=== PATIENT | female | born 1935 | race Caucasian/White ===

== ENCOUNTER 2017-05-20 18:19 | Inpatient (IN) | payer MEDICARE ==
[~2017-05-20] VITALS: Ht 165.1 cm; Wt 94.4 kg
[~2017-05-20 18:19] MED LIST: AMLO5TAB2 PO; AMOX1TAB61 PO; APIX5TAB PO; ATOR40TA PO; CITA20TA5 PO; ENAL20TA PO; ERGO500017 PO; ESOM20CA PO; ESOM40CA PO; FLUD0.1T PO; LEVO250T23 PO; LEVO500T47 PO; LISI-170 PO; MECL12.5 PO; METO25TA35 PO; OMEP-110 PO; RIVA15TA PO; RIVA20TA PO; SIMV80TA3 PO; WARF-36 PO
[2017-05-20] MEDS ORDERED: ATOR40TA PO (18:31)
[2017-05-20] MEDS ORDERED: APAP/CODEINE 300/30MG TABLET PO PRN (19:00)
[2017-05-20 20:31] LABS: BASOPHILS # (AUTO) 0.02 x10^3/uL (0-0.1); BASOPHILS % (AUTO) 0 % (0-1); EOSINOPHILS # (AUTO) 0.02 x10^3/uL (0-0.4); EOSINOPHILS % (AUTO) 0 % (1-7); LYMPHOCYTES # (AUTO) 1.37 x10^3/uL (1-3.4); LYMPHOCYTES % (AUTO) 12 % (22-44); MD NO; MEAN CORPUSCULAR HEMOGLOBIN 24.5 pg (27.0-34.8); MEAN CORPUSCULAR HGB CONC 32.2 g/dL (32.4-35.8); MEAN CORPUSCULAR VOLUME 76.1 fL (80-100); MONOCYTES # (AUTO) 1.14 x10^3/uL (0.2-0.8); MONOCYTES % (AUTO) 10 % (2-9); NEUTROPHILS # (AUTO) 8.79 x10^3/uL (1.8-6.8); NEUTROPHILS % (AUTO) 78 % (42-75); PLATELET COUNT 158 x10^3/uL (130-400); RED BLOOD COUNT 4.18 x10^6/uL (3.82-5.3); RED CELL DISTRIBUTION WIDTH 19.8 % (9.6-15.2)
[2017-05-20 20:33] LABS: HCT (SEDRATE) 31.8 % (34.6-47.8)
[2017-05-20 20:42] LABS: ANION GAP 9 mmol/L (5-15); CALCIUM 8.9 mg/dL (8.5-10.1); CHLORIDE 107 mmol/L (98-107); CREATININE 0.98 mg/dL (0.55-1.02)
[2017-05-20 20:55] LABS: C-REACTIVE PROTEIN, QUANT > 19.00 mg/dL (0.02-0.49)
[2017-05-20] MEDS ORDERED: LIDOCAINE-MPF 1%, 5ML ONE (22:16)
[2017-05-20] MEDS ORDERED: LIDOCAINE 1%, 10ML INFIL ONE (22:30)
[2017-05-20] MEDS ORDERED: CEFEPIME 2 GM in SODIUM CHLORIDE 0.9% 100 ML IV ONE (23:30)
[2017-05-20] MEDS ORDERED: VANCOMYCIN PER PHARMACY MC ONE (23:30)
[2017-05-20] MEDS ORDERED: CEFEPIME 2 GM in DEXTROSE 5% 100 ML IV ONE (23:30)
[2017-05-21] MEDS ORDERED: VANCOMYCIN 1,600 MG in SODIUM CHLORIDE 0.9% 250 ML IV ONE
[2017-05-21] MEDS ORDERED: POTASSIUM CHLORIDE 20 MEQ TAB.ER.PRT PO ONE
[2017-05-21] MEDS ORDERED: ONDANSETRON 2MG/ML, 2ML IVPush PRN ×2 (00:30→16:30)
[2017-05-21] MEDS ORDERED: morphine SULFATE 10 MG/ML, 1ML IVPush PRN (00:30)
[2017-05-21] MEDS ORDERED: VANCOMYCIN PER PHARMACY MC PRN ×2 (00:30→07:30)
[2017-05-21 00:31] LABS: % IRON SATURATION 4 % (20-55); IRON LEVEL 10 mcg/dL (50-170); TOTAL IRON BINDING CAPACITY 280 mcg/dL (250-450)
[2017-05-21] MEDS: SODIUM CHLORIDE 0.9% 1,000 ML IV SCH ×2 (01:17→13:27)
[2017-05-21 01:30] VITALS: BP 162/84
[2017-05-21] MEDS ORDERED: PHARMACOKINETIC MONITORING MC PRN (01:30)
[2017-05-21] MEDS ORDERED: DIPHENHYDRAMINE 50 MG/ML, 1ML ONE (02:17)
[2017-05-21] MEDS: HYDROcodone/APAP 5/325 TABLET PO PRN ×3 (02:21→20:37)
[2017-05-21] MEDS ORDERED: DIPHENHYDRAMINE 50 MG/ML, 1ML IVPush ONE (02:30)
[2017-05-21 02:50] VITALS: BP 162/84
[2017-05-21 07:25] VITALS: BP 157/81
[2017-05-21] MEDS: METOPROLOL TARTRATE 25 MG TABLET PO SCH ×2 (08:46→20:39)
[2017-05-21] MEDS: PANTOPROZOLE 40MG TABLET PO SCH (08:47)
[2017-05-21] MEDS: LISINOPRIL 20 MG TABLET PO SCH ×2 (08:47→20:38)
[2017-05-21 10:27] LABS: INTERNATIONAL NORMALIZED RATIO 1.14 (0.93-1.1); PROTHROMBIN TIME 11.7 Seconds (9.6-11.5)
[2017-05-21] MEDS ORDERED: CEFEPIME 1 GM in DEXTROSE 5% 100 ML IV SCH (12:00)
[2017-05-21 14:14] VITALS: BP 141/76
[2017-05-21] MEDS ORDERED: TRANEXAMIC ACID 100 MG/ML, 10ML ONE (14:21)
[2017-05-21] MEDS ORDERED: VANCOMYCIN 1,000 MG ONE (14:22)
[2017-05-21] MEDS ORDERED: LIDOCAINE GEL 2%, 5ML ONE (15:11)
[2017-05-21] MEDS ORDERED: MIDAZOLAM 1 MG/ML, 2ML ONE (15:12)
[2017-05-21] MEDS ORDERED: FENTANYL PF 100 MCG/2ML ONE ×3 (15:12→17:00)
[2017-05-21] MEDS ORDERED: PROPOFOL 10 MG/ML, 20ML ONE (15:18)
[2017-05-21] MEDS ORDERED: ROCURONIUM 10 MG/ML,10ML ONE (15:18)
[2017-05-21] MEDS ORDERED: DEXAMETHASONE 4 MG/ML, 1ML ONE (15:18)
[2017-05-21] MEDS ORDERED: SUCCINYLCHOLINE 20 MG/ML, 10ML ONE (15:18)
[2017-05-21] MEDS ORDERED: ONDANSETRON 2MG/ML, 2ML ONE (15:18)
[2017-05-21] MEDS ORDERED: OXYcodone 5 MG/5 ML ORAL.SOL UDC PO PRN (16:30)
[2017-05-21] MEDS ORDERED: ACETAMINOPHEN 325 MG TABLET PO PRN (16:30)
[2017-05-21] MEDS ORDERED: PROMETHAZINE 12.5 MG SUPP PR PRN (16:30)
[2017-05-21] MEDS ORDERED: EPHEDRINE 50 MG/ML, 1ML IVPush PRN (16:30)
[2017-05-21] MEDS ORDERED: PROMETHAZINE 25 MG/ML, 1ML IV PRN (16:30)
[2017-05-21] MEDS ORDERED: morphine SULFATE 10 MG/ML, 1ML IV PRN (16:30)
[2017-05-21] MEDS ORDERED: MIDAZOLAM 1 MG/ML, 2ML IV PRN (16:30)
[2017-05-21] MEDS ORDERED: OXYcodone 5 MG/5 ML ORAL.SOL UDC ONE (17:00)
[2017-05-21] MEDS ORDERED: ACETAMINOPHEN 650 MG/20.3 ML UDC ONE (17:00)
[2017-05-21] MEDS ORDERED: ONDANSETRON ODT 4 MG PO PRN (17:00)
[2017-05-21] MEDS ORDERED: LABETALOL 5MG/ML, 20ML ONE (17:06)
[2017-05-21] MEDS: LABETALOL 5MG/ML, 20ML IV PRN ×3 (17:16→17:46)
[2017-05-21 17:17] LABS: CULTURE INDICATED? YES; MICROSCOPIC INDICATED
[2017-05-21] MEDS: FENTANYL PF 100 MCG/2ML IV PRN ×2 (17:18→17:47)
[2017-05-21] MEDS: CEFEPIME 2 GM in DEXTROSE 5% 100 ML IV SCH (18:29)
[2017-05-21 19:00] VITALS: BP 123/85
[2017-05-21] MEDS: ATORVASTATIN 40 MG TABLET PO SCH (20:38)
[2017-05-22 00:05] VITALS: BP 128/95
[2017-05-22] MEDS ORDERED: DIPHENHYDRAMINE 50 MG/ML, 1ML IVPush ONE (00:30)
[2017-05-22] MEDS ORDERED: VANCOMYCIN 1,600 MG in SODIUM CHLORIDE 0.9% 250 ML IV ONE (01:00)
[2017-05-22] MEDS: HYDROcodone/APAP 5/325 TABLET PO PRN ×4 (01:59→21:58)
[2017-05-22] MEDS: SODIUM CHLORIDE 0.9% 1,000 ML IV SCH (02:47)
[2017-05-22] MEDS: D5%-0.45% NACL 1,000 ML IV SCH ×2 (03:42→10:22)
[2017-05-22 04:00] VITALS: BP 118/54
[2017-05-22 04:25] LABS: BASOPHILS # (AUTO) 0.01 x10^3/uL (0-0.1); BASOPHILS % (AUTO) 0 % (0-1); EOSINOPHILS % (AUTO) 0 % (1-7); LYMPHOCYTES # (AUTO) 0.74 x10^3/uL (1-3.4); LYMPHOCYTES % (AUTO) 8 % (22-44); MD NO; MEAN CORPUSCULAR HEMOGLOBIN 24.4 pg (27.0-34.8); MEAN CORPUSCULAR HGB CONC 31.7 g/dL (32.4-35.8); MEAN CORPUSCULAR VOLUME 77.1 fL (80-100); MEAN PLATELET VOLUME 9.8 fL (7.4-10.4); MONOCYTES # (AUTO) 0.58 x10^3/uL (0.2-0.8); MONOCYTES % (AUTO) 6 % (2-9); NEUTROPHILS % (AUTO) 86 % (42-75); PLATELET COUNT 175 x10^3/uL (130-400); RED BLOOD COUNT 3.73 x10^6/uL (3.82-5.3); RED CELL DISTRIBUTION WIDTH 19.9 % (9.6-15.2)
[2017-05-22 04:41] LABS: ANION GAP 6 mmol/L (5-15); CALCIUM 8.2 mg/dL (8.5-10.1); CHLORIDE 110 mmol/L (98-107); CREATININE 0.76 mg/dL (0.55-1.02)
[2017-05-22] MEDS: CEFEPIME 2 GM in DEXTROSE 5% 100 ML IV SCH ×2 (06:22→18:11)
[2017-05-22 07:02] VITALS: BP 127/71
[2017-05-22] MEDS: MULTIVITAMINS/MINERALS TABLET PO SCH (08:39)
[2017-05-22] MEDS: METOPROLOL TARTRATE 25 MG TABLET PO SCH ×2 (08:39→21:59)
[2017-05-22] MEDS: PANTOPROZOLE 40MG TABLET PO SCH (08:39)
[2017-05-22] MEDS: RIVAROXABAN 10 MG TABLET PO SCH (08:39)
[2017-05-22] MEDS: LISINOPRIL 20 MG TABLET PO SCH ×2 (08:45→21:59)
[2017-05-22] MEDS ORDERED: MAGNESIUM SULFATE PMX 4GM/100M 100 ML IV ONE (09:00)
[2017-05-22] MEDS ORDERED: IRON SUCROSE COMPLEX 100MG/5ML IV ONE (09:00)
[2017-05-22 13:28] VITALS: BP 119/73
[2017-05-22] MEDS: TAMSULOSIN 0.4 MG CAP.ER.24H PO SCH (14:54)
[2017-05-22] MEDS: DAPTOMYCIN 800 MG in SODIUM CHLORIDE 0.9% 100 ML IV SCH (14:54)
[2017-05-22 15:49] LABS: THYROID STIMULATING HORMONE 0.601 mIU/L (0.358-3.740)
[2017-05-22 15:52] LABS: FOLATE LEVEL > 20.0 ng/mL (3.1-17.5)
[2017-05-22] MEDS: KETOROLAC 30 MG/1 ML IV SCH (17:16)
[2017-05-22 18:26] VITALS: BP 135/80
[2017-05-22 21:57] VITALS: BP 137/85
[2017-05-22] MEDS: ATORVASTATIN 40 MG TABLET PO SCH (21:58)
[2017-05-22] MEDS: DOCUSATE 100 MG CAPSULE PO SCH (21:58)
[2017-05-22] MEDS: POLYETHYLENE GLYCOL 17 GM PACKET PO PRN (23:39)
[2017-05-23 00:33] VITALS: BP 116/75
[2017-05-23] MEDS: KETOROLAC 30 MG/1 ML IV SCH ×2 (00:39→10:06)
[2017-05-23 05:07] LABS: BASOPHILS # (AUTO) 0.02 x10^3/uL (0-0.1); BASOPHILS % (AUTO) 0 % (0-1); EOSINOPHILS # (AUTO) 0.07 x10^3/uL (0-0.4); EOSINOPHILS % (AUTO) 1 % (1-7); LYMPHOCYTES # (AUTO) 1.42 x10^3/uL (1-3.4); LYMPHOCYTES % (AUTO) 17 % (22-44); MD NO; MEAN CORPUSCULAR HEMOGLOBIN 24.3 pg (27.0-34.8); MEAN CORPUSCULAR HGB CONC 31.6 g/dL (32.4-35.8); MEAN CORPUSCULAR VOLUME 76.7 fL (80-100); MEAN PLATELET VOLUME 9.6 fL (7.4-10.4); MONOCYTES # (AUTO) 0.81 x10^3/uL (0.2-0.8); MONOCYTES % (AUTO) 10 % (2-9); NEUTROPHILS # (AUTO) 6.09 x10^3/uL (1.8-6.8); NEUTROPHILS % (AUTO) 72 % (42-75); PLATELET COUNT 193 x10^3/uL (130-400); RED BLOOD COUNT 3.46 x10^6/uL (3.82-5.3); RED CELL DISTRIBUTION WIDTH 19.9 % (9.6-15.2)
[2017-05-23 05:15] LABS: ALBUMIN 1.9 g/dL (3.4-5.0); ANION GAP 7 mmol/L (5-15); CALCIUM 8.5 mg/dL (8.5-10.1); CHLORIDE 110 mmol/L (98-107)
[2017-05-23 05:32] LABS: CREATININE 0.78 mg/dL (0.55-1.02)
[2017-05-23] MEDS: CEFEPIME 2 GM in DEXTROSE 5% 100 ML IV SCH ×2 (06:34→18:19)
[2017-05-23 07:01] VITALS: BP 146/83
[2017-05-23] MEDS: IRON SUCROSE COMPLEX 100MG/5ML IV SCH (09:24)
[2017-05-23] MEDS: PANTOPROZOLE 40MG TABLET PO SCH ×2 (09:25→12:50)
[2017-05-23] MEDS: DOCUSATE 100 MG CAPSULE PO SCH ×3 (09:25→21:28)
[2017-05-23] MEDS: TAMSULOSIN 0.4 MG CAP.ER.24H PO SCH ×2 (09:25→12:49)
[2017-05-23] MEDS: RIVAROXABAN 10 MG TABLET PO SCH (09:25)
[2017-05-23] MEDS: MULTIVITAMINS/MINERALS TABLET PO SCH (09:25)
[2017-05-23] MEDS: METOPROLOL TARTRATE 25 MG TABLET PO SCH ×2 (09:25→21:28)
[2017-05-23] MEDS: LISINOPRIL 20 MG TABLET PO SCH ×2 (09:25→21:28)
[2017-05-23] MEDS ORDERED: HALOPERIDOL 5 MG/ML IV ONE (10:00)
[2017-05-23] MEDS ORDERED: hydrALAzine 20 MG/ML, 1ML IV PRN (10:00)
[2017-05-23] MEDS ORDERED: PROMETHAZINE 12.5 MG SUPP PR PRN (10:00)
[2017-05-23] MEDS ORDERED: FENTANYL PF 100 MCG/2ML IV PRN (10:00)
[2017-05-23] MEDS ORDERED: OXYcodone 5 MG/5 ML ORAL.SOL UDC PO PRN (10:00)
[2017-05-23] MEDS ORDERED: PROMETHAZINE 25 MG/ML, 1ML IV PRN (10:00)
[2017-05-23] MEDS ORDERED: HYDROmorphone 1 MG/ML, 1ML IV PRN (10:00)
[2017-05-23] MEDS ORDERED: ALBUTEROL SULFATE 2.5 MG/3 ML NPPB PRN (10:00)
[2017-05-23] MEDS ORDERED: ACETAMINOPHEN 325 MG TABLET PO PRN (10:00)
[2017-05-23] MEDS ORDERED: LABETALOL 5MG/ML, 20ML IV PRN (10:00)
[2017-05-23] MEDS ORDERED: ONDANSETRON 2MG/ML, 2ML ONE (10:02)
[2017-05-23] MEDS ORDERED: PROPOFOL 10 MG/ML, 20ML ONE (10:02)
[2017-05-23] MEDS ORDERED: FENTANYL PF 100 MCG/2ML ONE (10:02)
[2017-05-23] MEDS ORDERED: DEXAMETHASONE 4 MG/ML, 1ML ONE (10:02)
[2017-05-23] MEDS ORDERED: CEFAZOLIN 1,000 MG ONE (10:02)
[2017-05-23] MEDS ORDERED: ACETAMINOPHEN 650 MG/20.3 ML UDC ONE (11:50)
[2017-05-23] MEDS: ACETAMINOPHEN 325 MG TABLET PO PRN ×2 (11:51→21:42)
[2017-05-23 12:25] VITALS: BP 134/81
[2017-05-23] MEDS: DAPTOMYCIN 800 MG in SODIUM CHLORIDE 0.9% 100 ML IV SCH (15:50)
[2017-05-23] MEDS: POLYETHYLENE GLYCOL 17 GM PACKET PO PRN (17:25)
[2017-05-23 18:25] VITALS: BP 118/69
[2017-05-23 21:26] VITALS: BP 112/65
[2017-05-23] MEDS: ATORVASTATIN 40 MG TABLET PO SCH (21:28)
[2017-05-23 23:59] VITALS: BP 100/60
[2017-05-24 03:57] VITALS: BP 129/72
[2017-05-24 05:15] LABS: ALBUMIN 1.9 g/dL (3.4-5.0); ANION GAP 7 mmol/L (5-15); CALCIUM 8.5 mg/dL (8.5-10.1); CHLORIDE 112 mmol/L (98-107)
[2017-05-24 05:16] LABS: CREATININE 0.78 mg/dL (0.55-1.02)
[2017-05-24 05:17] LABS: BASOPHILS # (AUTO) 0.01 x10^3/uL (0-0.1); BASOPHILS % (AUTO) 0 % (0-1); EOSINOPHILS # (AUTO) 0.01 x10^3/uL (0-0.4); EOSINOPHILS % (AUTO) 0 % (1-7); LYMPHOCYTES % (AUTO) 15 % (22-44); MD NO; MEAN CORPUSCULAR HEMOGLOBIN 24.6 pg (27.0-34.8); MEAN CORPUSCULAR HGB CONC 31.9 g/dL (32.4-35.8); MEAN CORPUSCULAR VOLUME 77.1 fL (80-100); MEAN PLATELET VOLUME 9.3 fL (7.4-10.4); MONOCYTES # (AUTO) 0.66 x10^3/uL (0.2-0.8); MONOCYTES % (AUTO) 9 % (2-9); NEUTROPHILS # (AUTO) 5.94 x10^3/uL (1.8-6.8); NEUTROPHILS % (AUTO) 76 % (42-75); PLATELET COUNT 212 x10^3/uL (130-400); RED BLOOD COUNT 3.25 x10^6/uL (3.82-5.3); RED CELL DISTRIBUTION WIDTH 19.7 % (9.6-15.2)
[2017-05-24] MEDS: ACETAMINOPHEN 325 MG TABLET PO PRN ×2 (05:57→22:11)
[2017-05-24] MEDS: CEFEPIME 2 GM in DEXTROSE 5% 100 ML IV SCH ×2 (06:17→18:04)
[2017-05-24 07:06] VITALS: BP 126/74
[2017-05-24] MEDS: TAMSULOSIN 0.4 MG CAP.ER.24H PO SCH ×3 (09:18→09:38)
[2017-05-24] MEDS: PANTOPROZOLE 40MG TABLET PO SCH (09:19)
[2017-05-24] MEDS: LISINOPRIL 20 MG TABLET PO SCH ×2 (09:19→21:44)
[2017-05-24] MEDS: DOCUSATE 100 MG CAPSULE PO SCH ×2 (09:19→21:00)
[2017-05-24] MEDS: MULTIVITAMINS/MINERALS TABLET PO SCH (09:19)
[2017-05-24] MEDS: METOPROLOL TARTRATE 25 MG TABLET PO SCH ×2 (09:19→21:44)
[2017-05-24] MEDS: RIVAROXABAN 10 MG TABLET PO SCH (12:39)
[2017-05-24] MEDS: IRON SUCROSE COMPLEX 100MG/5ML IV SCH (12:39)
[2017-05-24] MEDS ORDERED: BISACODYL 10 MG SUPP ONE (12:59)
[2017-05-24] MEDS ORDERED: BISACODYL 10 MG SUPP PR PRN (13:00)
[2017-05-24 14:37] VITALS: BP 174/90
[2017-05-24] MEDS: DAPTOMYCIN 800 MG in SODIUM CHLORIDE 0.9% 100 ML IV SCH (16:32)
[2017-05-24] MEDS ORDERED: RIVAROXABAN 10 MG TABLET ONE (18:28)
[2017-05-24] MEDS ORDERED: RIVAROXABAN 10 MG TABLET PO ONE (18:30)
[2017-05-24 19:30] VITALS: BP 105/58
[2017-05-24] MEDS: ATORVASTATIN 40 MG TABLET PO SCH (21:43)
[2017-05-25 02:17] VITALS: BP 152/67
[2017-05-25 04:57] LABS: BASOPHILS # (AUTO) 0.12 x10^3/uL (0-0.1); BASOPHILS % (AUTO) 1 % (0-1); EOSINOPHILS # (AUTO) 0.17 x10^3/uL (0-0.4); EOSINOPHILS % (AUTO) 2 % (1-7); LYMPHOCYTES # (AUTO) 2.53 x10^3/uL (1-3.4); LYMPHOCYTES % (AUTO) 29 % (22-44); MD NO; MEAN CORPUSCULAR HEMOGLOBIN 24.5 pg (27.0-34.8); MEAN CORPUSCULAR HGB CONC 31.8 g/dL (32.4-35.8); MONOCYTES # (AUTO) 0.49 x10^3/uL (0.2-0.8); MONOCYTES % (AUTO) 6 % (2-9); NEUTROPHILS # (AUTO) 5.52 x10^3/uL (1.8-6.8); NEUTROPHILS % (AUTO) 63 % (42-75); PLATELET COUNT 292 x10^3/uL (130-400); RED BLOOD COUNT 3.69 x10^6/uL (3.82-5.3); RED CELL DISTRIBUTION WIDTH 19.4 % (9.6-15.2)
[2017-05-25 05:01] LABS: ALBUMIN 2.1 g/dL (3.4-5.0); ANION GAP 7 mmol/L (5-15); CALCIUM 8.9 mg/dL (8.5-10.1); CHLORIDE 111 mmol/L (98-107)
[2017-05-25 05:04] LABS: CREATININE 0.64 mg/dL (0.55-1.02)
[2017-05-25] MEDS: CEFEPIME 2 GM in DEXTROSE 5% 100 ML IV SCH (06:35)
[2017-05-25] MEDS: ACETAMINOPHEN 325 MG TABLET PO PRN (06:39)
[2017-05-25 06:50] VITALS: BP 182/96
[2017-05-25 07:30] VITALS: BP 178/80
[2017-05-25] MEDS: IRON SUCROSE COMPLEX 100MG/5ML IV SCH (07:59)
[2017-05-25] MEDS: PANTOPROZOLE 40MG TABLET PO SCH (08:01)
[2017-05-25] MEDS: METOPROLOL TARTRATE 25 MG TABLET PO SCH (08:01)
[2017-05-25] MEDS: LISINOPRIL 20 MG TABLET PO SCH (08:01)
[2017-05-25] MEDS: TAMSULOSIN 0.4 MG CAP.ER.24H PO SCH (08:01)
[2017-05-25] MEDS: MULTIVITAMINS/MINERALS TABLET PO SCH (08:01)
[2017-05-25] MEDS: DOCUSATE 100 MG CAPSULE PO SCH (08:02)
[2017-05-25] MEDS ORDERED: MAGNESIUM SULFATE PMX 2GM/50ML 50 ML IV ONE (08:30)
[2017-05-25] MEDS ORDERED: RIVAROXABAN 20 MG TABLET PO SCH (09:00)
[2017-05-25 12:15] VITALS: BP 169/88
[2017-05-25] MEDS ORDERED: HYDR25TA6 PO (13:11)
[2017-05-25] MEDS ORDERED: TAMS-11 PO (13:11)
[2017-05-25] MEDS ORDERED: SODIUM PHOSPHATE 30 MMOL in SODIUM CHLORIDE 0.9% 500 ML IV ONE (13:30)
[2017-05-25] MEDS ORDERED: SODIUM PHOSPHATE 4 MEQ/ML IV SCH (13:30)
[2017-05-25] MEDS ORDERED: hydrALAzine 20 MG/ML, 1ML IV ONE (13:30)
[2017-05-25] MEDS ORDERED: HYDROCHLOROTHIAZIDE 25 MG TABLET PO SCH (13:30)
[2017-05-25] MEDS: HYDROcodone/APAP 5/325 TABLET PO PRN (13:57)
[2017-05-25 14:04] VITALS: BP 137/75
[2017-05-25] MEDS: DAPTOMYCIN 800 MG in SODIUM CHLORIDE 0.9% 100 ML IV SCH (17:00)
[2017-05-25 17:25] VITALS: BP 147/81
== END 2017-05-25 17:35 | DRG 466 ==
LOC: ED 21:48 → EDIP 23:31 → 4NOR 05-21 01:07
PROVIDERS: ADMIT Hospitalist; ATTEND Hospitalist
PROC: 0S9C3ZZ Drainage of Right Knee Joint, Percutaneous Approach (ICD-10-PCS; principal; 2017-05-20)
PROC: 0SRV0JZ Replacement of Right Knee Joint, Tibial Surface with Synthetic Substitute, Open Approach (ICD-10-PCS; 2017-05-21)
PROC: 0SPV0JZ Removal of Synthetic Substitute from Right Knee Joint, Tibial Surface, Open Approach (ICD-10-PCS; 2017-05-21)
PROC: 0T9B70Z Drainage of Bladder with Drainage Device, Via Natural or Artificial Opening (ICD-10-PCS; 2017-05-21)
PROC: 0TCB8ZZ Extirpation of Matter from Bladder, Via Natural or Artificial Opening Endoscopic (ICD-10-PCS; 2017-05-23)
PROC: 0T7C8ZZ Dilation of Bladder Neck, Via Natural or Artificial Opening Endoscopic (ICD-10-PCS; 2017-05-23)
PROC: 02HV33Z Insertion of Infusion Device into Superior Vena Cava, Percutaneous Approach (ICD-10-PCS; 2017-05-25)
PROC: B5181ZA Fluoroscopy of Superior Vena Cava using Low Osmolar Contrast, Guidance (ICD-10-PCS; 2017-05-25)
DX: T84.53XA Infection and inflammatory reaction due to internal right knee prosthesis, initial encounter (principal); E43 Unspecified severe protein-calorie malnutrition; I50.32 Chronic diastolic (congestive) heart failure; I11.0 Hypertensive heart disease with heart failure; I35.0 Nonrheumatic aortic (valve) stenosis; W18.11XA Fall from or off toilet without subsequent striking against object, initial encounter; D50.9 Iron deficiency anemia, unspecified; E66.9 Obesity, unspecified; E78.00 Pure hypercholesterolemia, unspecified; E78.5 Hyperlipidemia, unspecified; E83.42 Hypomagnesemia; I25.10 Atherosclerotic heart disease of native coronary artery without angina pectoris; K21.9 Gastro-esophageal reflux disease without esophagitis; M65.9 Synovitis and tenosynovitis, unspecified; R31.0 Gross hematuria; R33.9 Retention of urine, unspecified; Y83.8 Other surgical procedures as the cause of abnormal reaction of the patient, or of later complication, without mention of misadventure at the time of the procedure; Y83.1 Surgical operation with implant of artificial internal device as the cause of abnormal reaction of the patient, or of later complication, without mention of misadventure at the time of the procedure; M25.461 Effusion, right knee; Z79.01 Long term (current) use of anticoagulants; Z80.9 Family history of malignant neoplasm, unspecified; Z81.1 Family history of alcohol abuse and dependence; Z82.3 Family history of stroke; Z82.49 Family history of ischemic heart disease and other diseases of the circulatory system; Z86.711 Personal history of pulmonary embolism; Z85.72 Personal history of non-Hodgkin lymphomas; Z86.718 Personal history of other venous thrombosis and embolism; Z87.11 Personal history of peptic ulcer disease; Z87.440 Personal history of urinary (tract) infections; Z87.891 Personal history of nicotine dependence; Z88.1 Allergy status to other antibiotic agents; Z90.710 Acquired absence of both cervix and uterus; Z95.5 Presence of coronary angioplasty implant and graft; Z68.34 Body mass index [BMI] 34.0-34.9, adult; Y92.89 Other specified places as the place of occurrence of the external cause; Y93.89 Activity, other specified; Y99.8 Other external cause status
CPT/HCPCS: 36415; 36569; 76937; 77001; 80048; 81001; 82040; 82607; 82728; 82746; 82945; 83540; 83550; 83615; 83735; 84100; 84157; 84443; 85025; 85610; 85651; 85810; 86140; 86850; 86870; 86900; 86902; 86922; 86923; 87040; 87070; 87075; 87086; 87176; 87205; 89050; 89060; 93005; 96365; J0690; J0878; J1100; J1756; J1885; J2250; J2405; J2704; J3010; J3370; C1751; C1769; C1776; J0330; J0360; J1200; J3475; J7030; J7040; J7050